=== PATIENT | female | born 1965 | race Caucasian/White ===

== ENCOUNTER → 2016-12-13 | Outpatient (CLI) | payer OTHER ==
--- NOTE | 2016-12-13 09:50 | RADIOLOGY REPORT PS360 ---
CT SINUS (MAX-FACIAL W/O CONT) CLINICAL INDICATION: MAX SINUSITIS,RECURRENT ACUTE SEROUS OTITIS MEDIA B-EARS ORDERING PHYSICIAN: Chai Dye MD PATIENT AGE: 51 years COMPARISON: None TECHNIQUE:Axial, sagittal, and coronal images are generated and reviewed without contrast FINDINGS: No sinus air-fluid levels or significant mucosal thickening evident. There is moderate leftward nasal septal deviation with a septal spur projecting toward the left causing narrowing of the left nasal airway. The ostiomeatal complexes are patent.. The orbits and TMJs are unremarkable. There is decreased pneumatization of left mastoid air cells. IMPRESSION: 1. Negative CT of the paranasal sinuses. 2. Leftward nasal septal deviation with septal spur projecting toward the left
== END ==
LOC: RAD 07:59
DX: J34.3 Hypertrophy of nasal turbinates (principal); J30.9 Allergic rhinitis, unspecified; J32.0 Chronic maxillary sinusitis; H65.06 Acute serous otitis media, recurrent, bilateral; H65.413 Chronic allergic otitis media, bilateral; H92.01 Otalgia, right ear